=== PATIENT | male | born 1995 | race African-American/Black ===

== ENCOUNTER 2023-03-08 09:51 | Emergency (ER) | payer SELFPAY ==
[2023-03-08] MEDS ORDERED: HYDROcodone/Acetaminophen 5/325 mg Tablet ONE (10:12)
== END 2023-03-08 10:59 | disposition home or self-care (01) ==
LOC: CSHERS 09:51
DX: S60.131A Contusion of right middle finger with damage to nail, initial encounter (principal); F17.210 Nicotine dependence, cigarettes, uncomplicated; W23.0XXA Caught, crushed, jammed, or pinched between moving objects, initial encounter
CPT/HCPCS: 11740